=== PATIENT | female | born 1980 | race Caucasian/White ===

== ENCOUNTER 2024-11-20 06:23 | Day surgery (SDC) | payer BC, SELFPAY | END 2024-11-20 15:38 | disposition home or self-care (01) | LOC: GI 06:23 | PROVIDERS: ATTENDING PHYSICIAN Internal Medicine Gastroenterology | DX: K63.5 Polyp of colon (principal); K63.89 Other specified diseases of intestine; K64.9 Unspecified hemorrhoids; R19.4 Change in bowel habit | CPT/HCPCS: 45380; 88305 ==